=== PATIENT | female | born 1970 | race Caucasian/White ===

== ENCOUNTER → 2016-12-06 08:01 | Outpatient (CLI) | payer BC ==
[2015-06-16 11:16] VITALS: BMI 45.8
[~2016-12-06 08:01] MED LIST: BACTROBAN NASAL1 GM NASAL; BENICAR20 MG PO; ELIQUIS2.5 MG PO; LASIX20 MG PO; LEXAPRO20 MG PO; PERCOCET 10/3251 TA1 PO; PRAVACHOL40 MG PO; PRILOSEC20 MG PO; VOLTAREN75 MG PO
== END | disposition home or self-care (01) ==
LOC: D.NM 12-03 08:15
DX: M17.11 Unilateral primary osteoarthritis, right knee (principal)

== ENCOUNTER 2017-01-06 05:23 | Inpatient (IN) | payer BC ==
[2017-01-03 10:36] LABS: BASOPHILS 0.3 % (0-2); EOSINOPHILS 2.7 % (0-7); HEMATOCRIT 27.9 % (36.0-48.0); HEMOGLOBIN 8.2 g/dL (12-16); IMMATURE GRANULOCYTES 0.1 % (0-5); LYMPHOCYTES 30.7 % (15-50); MCH 21.4 pg (26.0-34.0); MCHC 29.4 g/dL (31.0-37.0); MCV 72.8 fL (80.0-100.0); MEAN PLATELET VOLUME 8.8 fL (7.4-10.4); MONOCYTES 9.7 % (2-11); NEUTROPHILS 56.5 % (40-80); RBC 3.83 10x6/uL (4.00-5.40); RDW 15.6 % (11.5-14.5); WBC 7.7 10x3/uL (4.8-10.8)
[2017-01-03 10:49] LABS: APTT 26.7 SECONDS (22.8-39.4); INR 0.94 (0.85-1.17); PROTIME 12.4 SECONDS (11.6-15.0)
[2017-01-03 10:50] LABS: CALC OSMOLALITY 272 mosm/kg (275-300); CALCIUM 7.5 mg/dL (8.5-10.1); CARBON DIOXIDE 25.7 mmol/L (21.0-32.0); CHLORIDE - SERUM 103 mmol/L (98-107); CREATININE - SERUM 0.8 mg/dL (0.6-1.3); GLUCOSE 90 mg/dL (74-106); SODIUM 136 mmol/L (136-145); UREA NITROGEN 15 mg/dL (7-18); eGFR NON AFRICAN AMERICAN 82 mL/min (90-120)
[2017-01-03 10:52] LABS: PLATELET COUNT 277 10x3/uL (130-400)
[2017-01-03 11:17] LABS: APPEARANCE SLT CLOUDY (CLEAR); BACTERIA MODERATE /hpf (NONE SEEN); BILIRUBIN NEGATIVE (NEGATIVE); COLOR YELLOW (YELLOW); GLUCOSE NEGATIVE (NEGATIVE); KETONE NEGATIVE (NEGATIVE); LEUKOCYTE ESTERASE 2+ (NEGATIVE); MUCUS <1+ /lpf (NONE SEEN); NITRITE NEGATIVE (NEGATIVE); PROTEIN NEGATIVE (NEGATIVE); RED CELLS - URINE 0-5 /hpf (0-5); UROBILINOGEN NORMAL (NORMAL); WHITE CELLS - URINE 0-5 /hpf (0-5)
[~2017-01-06] VITALS: Ht 162.6 cm; Wt 118.2 kg
[~2017-01-06 05:23] MED LIST changes: +NEURONTIN 300300 MG PO
[2017-01-06 07:23] VITALS: BP 149/81; BMI 44.7
[2017-01-06 11:29] VITALS: BP 140/74
[2017-01-06 13:32] VITALS: BP 133/73; Ht 162.6 cm; Wt 118.2 kg
--- NOTE | 2017-01-06 19:45 | NUR ---
PATIENT RESTING IN BED WITH FAMILY AT BEDSIDE. PATIENT REQUESTED PAIN MEDICATION WITH HER NIGHT MEDS. PATIENT DENIES OTHER NEEDS AT THIS TIME. BED IN LOWEST POSITION AND CALL LIGHT WITHIN REACH. ENCOURAGED THE PATIENT TO CALL IF SHE HAS NEEDS.
[2017-01-06 20:00] VITALS: BP 149/77
[2017-01-06 23:37] VITALS: BP 128/68
[2017-01-07 04:00] VITALS: BP 105/68
[2017-01-07 05:14] LABS: HEMATOCRIT 26.9 % (36.0-48.0); HEMOGLOBIN 8.1 g/dL (12-16); MCH 21.5 pg (26.0-34.0); MCHC 30.1 g/dL (31.0-37.0); MCV 71.5 fL (80.0-100.0); MEAN PLATELET VOLUME 8.8 fL (7.4-10.4); RBC 3.76 10x6/uL (4.00-5.40); RDW 15.5 % (11.5-14.5); WBC 10.1 10x3/uL (4.8-10.8)
--- NOTE | 2017-01-07 07:30 | NUR ---
RECIEVED PT DURING WALKING ROUNDS, PT RESTING IN BED WITH COMPLAINTS OF PAIN OF A 6 ON A SCALE OF 1-10. MEDICATION TO BE GIVEN PER ORDER. ASSESSMENT DONE PER FLOWSHEET. BED IN LOW POSITION AND CALL LIGHT WITHIN REACH. WILL CONTINUE TO MONITOR.
[2017-01-07 09:23] VITALS: BP 178/86
--- NOTE | 2017-01-07 09:25 | OP ---
PATIENT NAME: DES LIRA MEDICAL RECORD: [id number] :74 LOCATION:D.MS [facility]2208 ADMISSION DATE:01/06/17 SURGEON: MAGDALENE SIMPSON MD DATE OF OPERATION: 01/06/2017 PREOPERATIVE DIAGNOSIS: Unstable total knee arthroplasty. POSTOPERATIVE DIAGNOSIS: Unstable total knee arthroplasty. PROCEDURE: Revision total knee arthroplasty -- poly only. SURGEON: Magdalene Simpson MD ANESTHESIA: General. INTRAOPERATIVE COMPLICATIONS: None. SUMMARY OF PATHOLOGIC FINDINGS: On exam under anesthesia, she had well balanced knee; however, lax medially and laterally, as well as inflexion -- the 13 poly was taken out and the 16 poly was put in, which made a well balanced and appropriate tension in both flexion and extension. OPERATIVE SUMMARY IN DETAIL: After obtaining the appropriate preoperative orthopedic surgery consent as well as anesthetic consultation, evaluation and clearance, the patient was brought to the operating room and placed on the operating table in supine position. After adequate general laryngeal mask airway was administered, tourniquet was placed about the proximal aspect to the right lower extremity. Right lower extremity was prepped and draped in routine sterile fashion. Leg was elevated, exsanguinated and tourniquet was inflated to 350 mmHg. Midline incision was taken down. The 0 suture line was identified. Paramedian arthrotomy was performed. The knee was flexed. The patella was subluxed laterally. The polyethylene was removed. Trial was undertaken with 13, 19 did not go in, size 16 was the most appropriate. After copious irrigation, size 16 polyethylene was put into placed on the tibial baseplate. The knee was then taken through range of motion and found to be stable in all planes. Wound was again irrigated and closed. Paramedian arthrotomy was closed with #2 Ethibond followed by #1 Vicryl, 2-0 Vicryl and skin pablo. Sterile dressings were applied. The patient was awakened, taken to recovery room in stable condition. All final needle and sponge counts were correct. TRANSINT:[id number] Voice Confirmation ID: [id number] DOCUMENT ID: [id number] MAGDALENE SIMPSON MD at 0925 CC: [id number] DICTATION DATE: 01/06/17 1055 [place] SALESPERSON: 08/24/17 1833 ADM IN [facility] [address] [place] [address]
[2017-01-07 09:42] LABS: % SATURATION 4 % (15-55); IRON 15 ug/dl (35-150); TOTAL IRON BIND CAPACITY 354 ug/dl (260-445); UNSAT IRON BIND CAPACITY 339 ug/dl (150-375)
[2017-01-07 13:23] VITALS: BP 161/74
[2017-01-07 17:27] VITALS: BP 145/73
[2017-01-07 20:00] VITALS: BP 119/71
[2017-01-08] VITALS: BP 120/68
[2017-01-08 04:00] VITALS: BP 142/74
--- NOTE | 2017-01-08 05:42 | NUR ---
ASSISTS PT UP TO TOILET. ALTERNATING PERCOCET AND NORCO FOR PAIN. HINGE BRACE TO RIGHT KNEE. WILL CONTINUE TO MONITOR.
[2017-01-08 06:37] LABS: HEMATOCRIT 25.4 % (36.0-48.0); MCH 21.4 pg (26.0-34.0); MCHC 29.5 g/dL (31.0-37.0); MCV 72.4 fL (80.0-100.0); MEAN PLATELET VOLUME 8.7 fL (7.4-10.4); RBC 3.51 10x6/uL (4.00-5.40)
[2017-01-08 06:41] LABS: WBC 6.2 10x3/uL (4.8-10.8)
[2017-01-08 06:42] LABS: HEMOGLOBIN 7.5 g/dL (12-16)
[2017-01-08 07:19] VITALS: BP 121/69
[2017-01-08 07:19] LABS: FOLATE (FOLIC ACID) - SERUM 5.9 ng/mL (>3.0)
--- NOTE | 2017-01-08 07:47 | NUR ---
PATIENT IN BED WITH NO COMPLAINTS. IV INTACT. DENIES ANY NEEDS AT THIS TIME. FAMILY AT BEDSIDE. CALL LIGHT WITHIN REACH.
--- NOTE | 2017-01-08 07:56 | NUR ---
CALUDINE DISLA APN ORDERED 2 UNITS OF PRBCS. STATED TO CALL AFTER H&H DRAWN AFTER BLOOD AND IF LESS THAN 8 TO CALL HER. POSSIBLE DC AFTER BLOOD IF H&H OK.
[2017-01-08] MEDS ORDERED: ELIQUIS2.5 MG PO (08:17)
[2017-01-08] MEDS ORDERED: PERCOCET 10/3251 TA1 PO (08:17)
[2017-01-08] MEDS ORDERED: HEMOCYTE PLUS C1 CAP PO (08:17)
--- NOTE | 2017-01-08 10:16 | NUR ---
PATIENT FIRST UNIT OF BLOOD STARTED AT THIS TIME. NO COMPLAINTS OR SIGNS OF DISTRESS. VS STABLE. IV INTACT. CALL LIGHT WITHIN REACH. WILL CONTINUE TO MONITOR.
--- NOTE | 2017-01-08 10:40 | NUR ---
PATIENT VS STABLE. NO PROBLEMS WITH BLOOD INFUSING AT THIS TIME. PATIENT WITH NO COMPLAINTS. CALL LIGHT WITHIN REACH. WILL CONTINUE TO MONITOR.
[2017-01-08 11:04] VITALS: BP 123/66
--- NOTE | 2017-01-08 12:55 | NUR ---
PATIENT BLOOD FINISHED AT THIS TIME. NS INFUSING, VS STABLE. NO COMPLAINTS OR SIGNS OF DISTRESS. IV INTACT. CALL LIGHT WITHIN REACH.
--- NOTE | 2017-01-08 13:35 | NUR ---
PATIENT 2ND UNIT STARTED AT THIS TIME. VS STABLE. IV INTACT. NO COMPLAINTS AND SIGNS OF DISTRESS. CALL LIGHT WITHIN REACH.
[2017-01-08 15:07] VITALS: BP 155/88
[2017-01-08 16:57] LABS: HEMATOCRIT 32.8 % (36.0-48.0); HEMOGLOBIN 10.3 g/dL (12-16)
--- NOTE | 2017-01-08 17:00 | NUR ---
PATIENT DRESSING CHANGED AT THIS TIME. INCISION CDI. NO REDNESS DRAINAGE OR SIGNS OF INFECTION. PATIENT TOLERATED WITH NO PAIN. CALL LIGHT WITHIN REACH.
--- NOTE | 2017-01-08 17:42 | NUR ---
PATIENT RECIEVED DC INSTRUCTIONS. VERBALIZED UNDERSTANDING. NO QUESTION AT THIS TIME. PRESCRIPTIONS GIVEN TO PATIENT. IV REMOVED WITH CATH TIP INTACT. H&H WNL. IMMOBILIZER ON. CALL LIGHT WITHIN REACH. FAMILY AT BEDSIDE.
== END 2017-01-08 17:58 | disposition home or self-care (01) | DRG 489 ==
LOC: D.SDCHOLD 05:23 → D.MS 05:23 → D.SDCHOLD 08:30 → D.MS 11:13
PROVIDERS: ADMIT Orthopaedic Surgery
PROC: 0SUV09Z Supplement Right Knee Joint, Tibial Surface with Liner, Open Approach (ICD-10-PCS; 2017-01-06)
PROC: 0SPC09Z Removal of Liner from Right Knee Joint, Open Approach (ICD-10-PCS; principal; 2017-01-06 08:30)
DX: T84.032A Mechanical loosening of internal right knee prosthetic joint, initial encounter (principal); D64.9 Anemia, unspecified; I10 Essential (primary) hypertension

== ENCOUNTER 2017-05-26 05:37 | Day surgery (SDC) | payer BC ==
[2017-05-25 16:03] LABS: HEMATOCRIT 35.3 % (36.0-48.0); HEMOGLOBIN 11.4 g/dL (12-16); MCH 26.7 pg (26.0-34.0); MCHC 32.3 g/dL (31.0-37.0); MCV 82.7 fL (80.0-100.0); MEAN PLATELET VOLUME 9.1 fL (7.4-10.4); RBC 4.27 10x6/uL (4.00-5.40); RDW 13.6 % (11.5-14.5); WBC 6.5 10x3/uL (4.8-10.8)
[2017-05-25 16:08] LABS: CALC OSMOLALITY 270 mosm/kg (275-300); CALCIUM 8.6 mg/dL (8.5-10.1); CARBON DIOXIDE 27.3 mmol/L (21.0-32.0); CHLORIDE - SERUM 101 mmol/L (98-107); CREATININE - SERUM 0.8 mg/dL (0.6-1.3); GLUCOSE 97 mg/dL (74-106); POTASSIUM - SERUM 3.8 mmol/L (3.5-5.1); SODIUM 135 mmol/L (136-145); UREA NITROGEN 15 mg/dL (7-18); eGFR NON AFRICAN AMERICAN 82 mL/min (90-120)
[~2017-05-26] VITALS: Ht 160 cm; Wt 120.7 kg
--- NOTE | ~2017-05-26 | OP ---
PATIENT NAME: DES LIRA MEDICAL RECORD: [id number] :74 LOCATION:D.OPS ADMISSION DATE: SURGEON: MAGDALENE SIMPSON MD DATE OF OPERATION: 05/26/2017 PREOPERATIVE DIAGNOSIS: Painful osteophyte, distal aspect of the patella of the right knee status post total knee arthroplasty. POSTOPERATIVE DIAGNOSIS: Painful osteophyte, distal aspect of the patella of the right knee status post total knee arthroplasty. PROCEDURE: Arthroscopic excision of the large bone spur distal to the right patella. SURGEON: Magdalene Simpson MD ANESTHESIA: General. INTRAOPERATIVE COMPLICATIONS: None. SUMMARY OF PATHOLOGIC FINDINGS: The patient did have a very low hanging articulating osteophyte. It had articulated with the femoral implant enough to see some small abrasions on the distal aspect of it, likely causing a lot of this patient's kneecap pain. OPERATIVE SUMMARY IN DETAIL: After obtaining the appropriate preoperative orthopedic surgery consent as well as anesthetic consultation, evaluation and clearance, the patient was brought to the operating room and placed on the operating table in supine position. After general laryngeal mask airway was administered, tourniquet was placed about the proximal aspect of the right lower extremity. Right lower extremity was then prepped and draped in routine sterile fashion. Leg was elevated, exsanguinated and tourniquet was inflated to 350 mmHg. Routine inferolateral portal was established followed by superomedial portal and inferomedial portal. Diagnostic arthroscopy did reveal the patient to have this actually bone spur that was actually at the same level of the patellar component. All components did appear to be in good shape. A bur was used to grind down the articular aspect of it; however, I felt like there was still residual. Small incision was made anteriorly and the rest of the bone spur was taken out through the patellar tendon. This was removed in its entirety. The wound was copiously irrigated as was the knee using arthroscopic irrigation. The patellar tendon was reapproximated with #1 Vicryl followed by 2-0 Vicryl and skin pablo. Sterile dressings were applied. The patient was awakened and taken to the recovery room in stable condition. All final needle and sponge counts were correct. TRANSINT:[id number] Voice Confirmation ID: [id number] DOCUMENT ID: [id number] OPERATIVE REPORT [id number] PANKAJDES MD, JAMES KEVIN at 1346 CC: [id number] DICTATION DATE: 05/26/17 1135 DYE AUTOMATION OPERATOR: 05/26/17 1331 [facility] [place] [id number] [place] [id number]
[~2017-05-26 05:37] MED LIST changes: +FENOFIBRATE160 MG PO; +FUROSEMIDE20 MG PO; +HEMOCYTE PLUS C1 CAP PO; +HYDROCODONE-APA1 TAB PO; -LASIX20 MG PO; +XANAX1 MG PO
[2017-05-26 08:31] VITALS: BP 139/64; Ht 160 cm; Wt 120.7 kg
[2017-05-26] MEDS ORDERED: HYDROCODONE-APA1 TAB PO (11:32)
== END 2017-05-26 13:20 | disposition home or self-care (01) ==
LOC: D.OPS 05:37
PROVIDERS: Anesthesiology
DX: M25.671 Stiffness of right ankle, not elsewhere classified (principal); M25.561 Pain in right knee; I10 Essential (primary) hypertension; K21.9 Gastro-esophageal reflux disease without esophagitis; Z01.812 Encounter for preprocedural laboratory examination

== ENCOUNTER 2017-06-07 23:10 | Inpatient (IN) | payer BC, MEDICAID ==
[~2017-06-07] VITALS: Ht 157.5 cm; Wt 125.7 kg
--- NOTE | ~2017-06-07 | OP ---
PATIENT NAME: DES BULLOCK MEDICAL RECORD: [id number] :74 LOCATION:D.MS [facility]2205 ADMISSION DATE:06/08/17 SURGEON: MAGDALENE SIMPSON MD DATE OF OPERATION: 06/13/2017 PREOPERATIVE DIAGNOSIS: Acutely infected right total knee arthroplasty. POSTOPERATIVE DIAGNOSIS: Acutely infected right total knee arthroplasty. PROCEDURE: 1. Revision total knee arthroplasty with extensive I&D. 2. Synovectomy of the right knee. SURGEON: Magdalene Simpson MD ANESTHESIA: General. INTRAOPERATIVE COMPLICATIONS: None. SUMMARY OF PATHOLOGIC FINDINGS: The patient had very turbid synovial fluid consistent with diagnosis of infection. INDICATIONS: Ms. Bullock is a 47-year-old female who ultimately had to have a total knee arthroplasty because all other conservative options had failed. Recently she was treated with an arthroscopic inferior patellar pole osteophyte resection. One week later, she presented with temperature and a warm, painful knee. Aspirate did show Staphylococcus epidermidis. Given the fact that she is only a week out, we decided to treat her with a salvage debridement including poly exchange. OPERATIVE SUMMARY IN DETAIL: After obtaining the appropriate preoperative orthopedic surgery consent as well as anesthetic consultation, evaluation, and clearance, the patient was brought to the operating room and placed on the operating table in supine position. After general laryngeal mask airway was administered, tourniquet was placed about the proximal aspect of the right lower extremity. The right lower extremity was then prepped and draped in routine sterile fashion. The leg was elevated and exsanguinated, tourniquet inflated to 350 mmHg. Midline incision was reutilized, taken down to the level of the paramedian arthrotomy, which too was reutilized. The patella was displaced laterally. The knee was flexed. Please note that the patient had severe synovitis as well as substantial amounts of synovial fluid. Polyethylene was removed. The knee was then placed back in extension. Copious pulsatile lavage was utilized. Following this, a synovectomy was performed down into the medial and lateral gutter. Curettage was then utilized to debride the skin, subcutaneous tissue, portions of fat and fascia. The knee was then irrigated again. The knee was then placed in the flexion mode and both the femoral component and the tibial component were scrubbed with a polyethylene brush. Further irrigation was then followed by replacement of the 16 x 4 polyethylene spacer. Further irrigation was then followed by closure of the paramedian arthrotomy with #2 Ethibond followed by #1 Vicryl, 2-0 Vicryl, and skin pablo. Sterile dressings were applied. Tourniquet was deflated. The patient was awakened, taken to recovery room in stable condition. All final needle and sponge counts were correct. TRANSINT:[id number] Voice Confirmation ID: [id number] DOCUMENT ID: [id number] OPERATIVE REPORT [id number] DES BULLOCK MD, MAGDALENE QUINTANILLA at 1518 CC: [id number] DICTATION DATE: 06/13/17 1108 PRESS WRITER: 06/13/17 1344 ADM IN [place] [facility] [id number] [place] [address]
[2017-06-08 06:39] VITALS: BP 101/49; BMI 50.7
[2017-06-08 12:26] VITALS: BP 130/77
[2017-06-08 13:23] VITALS: Ht 157.5 cm; Wt 125.7 kg
[2017-06-08 14:32] LABS: BASOPHILS 0.1 % (0-2); EOSINOPHILS 0.5 % (0-7); HEMATOCRIT 33.2 % (36.0-48.0); HEMOGLOBIN 10.7 g/dL (12-16); IMMATURE GRANULOCYTES 0.2 % (0-5); LYMPHOCYTES 17.7 % (15-50); MCH 26.6 pg (26.0-34.0); MCHC 32.2 g/dL (31.0-37.0); MCV 82.6 fL (80.0-100.0); MEAN PLATELET VOLUME 9.2 fL (7.4-10.4); MONOCYTES 11.8 % (2-11); NEUTROPHILS 69.7 % (40-80); PLATELET COUNT 214 10x3/uL (130-400); RBC 4.02 10x6/uL (4.00-5.40); WBC 9.3 10x3/uL (4.8-10.8)
[2017-06-08 15:01] LABS: ANION GAP 14.9 mmol/L (8-16); C-REACTIVE PROTEIN 15.1 mg/dL (0.0-0.9); CALCIUM 8.5 mg/dL (8.5-10.1); CARBON DIOXIDE 25.9 mmol/L (21.0-32.0); POTASSIUM - SERUM 3.8 mmol/L (3.5-5.1)
[2017-06-08 15:43] LABS: ERYTHROCYTE SEDIMENTATION RATE 46 mm/hr (0-20)
[2017-06-08 15:56] VITALS: BP 131/69
[2017-06-09] VITALS (7 sets, daily range): BP systolic 101–149; BP diastolic 53–83
[2017-06-09 08:13] LABS: HEMATOCRIT 33.2 % (36.0-48.0); HEMOGLOBIN 10.6 g/dL (12-16); MCH 26.4 pg (26.0-34.0); MCHC 31.9 g/dL (31.0-37.0); MCV 82.8 fL (80.0-100.0); MEAN PLATELET VOLUME 8.8 fL (7.4-10.4); RBC 4.01 10x6/uL (4.00-5.40); RDW 13.8 % (11.5-14.5); WBC 8.3 10x3/uL (4.8-10.8)
[2017-06-09 20:37] LABS: PROTEIN - BODY FLUID 4.3 G/DL
[2017-06-09 23:06] LABS: NEUT - BF 92 %
[2017-06-10 01:30] VITALS: BP 108/67
[2017-06-10 05:21] VITALS: BP 133/66
[2017-06-10 08:07] VITALS: BP 106/63
[2017-06-10 12:17] VITALS: BP 128/79
[2017-06-10 15:46] VITALS: BP 112/60
[2017-06-10 21:41] VITALS: BP 128/74
[2017-06-11 00:40] VITALS: BP 155/84
[2017-06-11 08:29] LABS: BASOPHILS 0.2 % (0-2); EOSINOPHILS 1.7 % (0-7); HEMATOCRIT 30.7 % (36.0-48.0); HEMOGLOBIN 9.7 g/dL (12-16); IMMATURE GRANULOCYTES 0.2 % (0-5); LYMPHOCYTES 19.1 % (15-50); MCH 25.8 pg (26.0-34.0); MCHC 31.6 g/dL (31.0-37.0); MCV 81.6 fL (80.0-100.0); MEAN PLATELET VOLUME 8.8 fL (7.4-10.4); NEUTROPHILS 71.8 % (40-80); PLATELET COUNT 229 10x3/uL (130-400); RBC 3.76 10x6/uL (4.00-5.40); RDW 13.3 % (11.5-14.5); WBC 5.4 10x3/uL (4.8-10.8)
[2017-06-11 08:46] LABS: ALBUMIN 2.5 g/dL (3.4-5.0); ALKALINE PHOSPHATASE 59 U/L (46-116); ALT (SGPT) 24 U/L (10-68); BILIRUBIN - TOTAL 0.31 mg/dL (0.2-1.3); CALC OSMOLALITY 282 mosm/kg (275-300); CALCIUM 8.3 mg/dL (8.5-10.1); CARBON DIOXIDE 25.2 mmol/L (21.0-32.0); CHLORIDE - SERUM 105 mmol/L (98-107); CREATININE - SERUM 0.7 mg/dL (0.6-1.3); GLUCOSE 145 mg/dL (74-106); MAGNESIUM - SERUM 1.9 mg/dL (1.8-2.4); PHOSPHOROUS 3.3 mg/dL (2.5-4.9); POTASSIUM - SERUM 3.9 mmol/L (3.5-5.1); PROTEIN - SERUM 6.7 g/dL (6.4-8.2); SODIUM 141 mmol/L (136-145); UREA NITROGEN 11 mg/dL (7-18); eGFR NON AFRICAN AMERICAN > 90 mL/min (90-120)
[2017-06-11 09:46] VITALS: BP 136/64
[2017-06-11 12:34] VITALS: BP 147/80
[2017-06-11 17:05] VITALS: BP 115/70
[2017-06-11 22:02] VITALS: BP 146/80
[2017-06-12 06:34] LABS: HEMATOCRIT 29.4 % (36.0-48.0); HEMOGLOBIN 9.2 g/dL (12-16); MCHC 31.3 g/dL (31.0-37.0); MCV 83.1 fL (80.0-100.0); RBC 3.54 10x6/uL (4.00-5.40); RDW 13.3 % (11.5-14.5); WBC 6.1 10x3/uL (4.8-10.8)
[2017-06-12 06:50] LABS: CALC OSMOLALITY 282 mosm/kg (275-300); CALCIUM 7.9 mg/dL (8.5-10.1); CARBON DIOXIDE 26.2 mmol/L (21.0-32.0); CHLORIDE - SERUM 108 mmol/L (98-107); CREATININE - SERUM 0.7 mg/dL (0.6-1.3); GLUCOSE 100 mg/dL (74-106); SODIUM 142 mmol/L (136-145); UREA NITROGEN 12 mg/dL (7-18); eGFR NON AFRICAN AMERICAN > 90 mL/min (90-120)
[2017-06-12 09:07] VITALS: BP 141/83
[2017-06-12 12:40] VITALS: BP 140/85
[2017-06-12 17:09] VITALS: BP 163/91
[2017-06-12 21:40] VITALS: BP 151/85
[2017-06-13] VITALS (12 sets, daily range): BP systolic 129–163; BP diastolic 67–96
[2017-06-13 05:36] LABS: HEMATOCRIT 29.3 % (36.0-48.0); HEMOGLOBIN 9.3 g/dL (12-16); MCH 25.8 pg (26.0-34.0); MCHC 31.7 g/dL (31.0-37.0); MCV 81.4 fL (80.0-100.0); MEAN PLATELET VOLUME 8.8 fL (7.4-10.4); RBC 3.6 10x6/uL (4.00-5.40); RDW 13.1 % (11.5-14.5); WBC 5.7 10x3/uL (4.8-10.8)
[2017-06-13 06:16] LABS: CALC OSMOLALITY 277 mosm/kg (275-300); CALCIUM 8.2 mg/dL (8.5-10.1); CARBON DIOXIDE 28.4 mmol/L (21.0-32.0); CHLORIDE - SERUM 104 mmol/L (98-107); CREATININE - SERUM 0.7 mg/dL (0.6-1.3); GLUCOSE 105 mg/dL (74-106); SODIUM 140 mmol/L (136-145); UREA NITROGEN 10 mg/dL (7-18); eGFR NON AFRICAN AMERICAN > 90 mL/min (90-120)
[2017-06-14 04:00] VITALS: BP 169/88
[2017-06-14 04:52] LABS: HEMATOCRIT 31.1 % (36.0-48.0); MCH 26.2 pg (26.0-34.0); MCHC 32.2 g/dL (31.0-37.0); MCV 81.4 fL (80.0-100.0); MEAN PLATELET VOLUME 8.9 fL (7.4-10.4); RBC 3.82 10x6/uL (4.00-5.40); RDW 12.9 % (11.5-14.5)
[2017-06-14 05:03] LABS: WBC 10.6 10x3/uL (4.8-10.8)
[2017-06-14 05:04] LABS: ANION GAP 16.3 mmol/L (8-16); CALCIUM 8.2 mg/dL (8.5-10.1); CARBON DIOXIDE 24.5 mmol/L (21.0-32.0); POTASSIUM - SERUM 3.8 mmol/L (3.5-5.1)
[2017-06-14 05:07] LABS: CREATININE - SERUM 0.9 mg/dL (0.6-1.3)
[2017-06-14 07:55] VITALS: BP 167/80
[2017-06-14 11:52] VITALS: BP 159/78
[2017-06-14 16:11] VITALS: BP 146/80
[2017-06-14 20:00] VITALS: BP 154/81
[2017-06-15 04:00] VITALS: BP 148/87
[2017-06-15 05:03] LABS: C-REACTIVE PROTEIN 3.7 mg/dL (0.0-0.9); CALC OSMOLALITY 277 mosm/kg (275-300); CALCIUM 8.1 mg/dL (8.5-10.1); CARBON DIOXIDE 26.6 mmol/L (21.0-32.0); CHLORIDE - SERUM 103 mmol/L (98-107); CREATININE - SERUM 0.8 mg/dL (0.6-1.3); GLUCOSE 98 mg/dL (74-106); POTASSIUM - SERUM 3.5 mmol/L (3.5-5.1); SODIUM 140 mmol/L (136-145); UREA NITROGEN 10 mg/dL (7-18); eGFR NON AFRICAN AMERICAN 82 mL/min (90-120)
[2017-06-15 05:38] LABS: ERYTHROCYTE SEDIMENTATION RATE 67 mm/hr (0-20)
[2017-06-15 08:17] VITALS: BP 179/85
[2017-06-15 11:55] VITALS: BP 133/82
[2017-06-15 16:33] VITALS: BP 123/64
[2017-06-15 20:00] VITALS: BP 126/76
[2017-06-16 04:00] VITALS: BP 138/79
[2017-06-16] MEDS ORDERED: ELIQUIS2.5 MG PO (08:31)
[2017-06-16] MEDS ORDERED: PERCOCET 10/3251 TA1 PO (08:32)
[2017-06-16] MEDS ORDERED: VANCOMYCIN 1 GM/1 G1 IV (08:32)
[2017-06-16 08:38] VITALS: BP 137/80
[2017-06-16 11:46] VITALS: BP 119/72
[2017-06-16 16:25] VITALS: BP 131/78
== END 2017-06-16 19:20 | disposition home health service (06) | DRG 464 ==
LOC: D.ER 23:10 → D.MS 06-08 04:32
PROVIDERS: Orthopaedic Surgery; Student in an Organized Health Care Education/Training Program
PROC: 0SBC0ZZ Excision of Right Knee Joint, Open Approach (ICD-10-PCS; 2017-06-13)
PROC: 0SPV0JZ Removal of Synthetic Substitute from Right Knee Joint, Tibial Surface, Open Approach (ICD-10-PCS; principal; 2017-06-13 17:15)
PROC: 02H633Z Insertion of Infusion Device into Right Atrium, Percutaneous Approach (ICD-10-PCS; 2017-06-16)
PROC: B244ZZZ Ultrasonography of Right Heart (ICD-10-PCS; 2017-06-16)
DX: T84.53XA Infection and inflammatory reaction due to internal right knee prosthesis, initial encounter (principal); Z68.43 Body mass index [BMI] 50.0-59.9, adult; I10 Essential (primary) hypertension; F41.8 Other specified anxiety disorders; D64.9 Anemia, unspecified; E78.5 Hyperlipidemia, unspecified; M19.90 Unspecified osteoarthritis, unspecified site; M65.9 Synovitis and tenosynovitis, unspecified; E66.01 Morbid (severe) obesity due to excess calories

== ENCOUNTER → 2017-06-20 12:59 | Outpatient (CLI) | payer BC, MEDICAID ==
[2017-06-08 13:23] VITALS: BMI 50.7
[~2017-06-20 12:59] MED LIST changes: +VANCOMYCIN 1 GM/1 G1 IV
[2017-06-20 14:45] LABS: C-REACTIVE PROTEIN 3.1 mg/dL (0.0-0.9); CREATININE - SERUM 0.8 mg/dL (0.6-1.3); VANCOMYCIN - TROUGH 38.4 ug/mL (10.0-20.0)
[2017-06-20 15:39] LABS: ERYTHROCYTE SEDIMENTATION RATE 51 mm/hr (0-20)
[2017-06-20 15:42] LABS: BASOPHILS 0.5 % (0-2); EOSINOPHILS 3.6 % (0-7); HEMATOCRIT 29.1 % (36.0-48.0); HEMOGLOBIN 9.1 g/dL (12-16); IMMATURE GRANULOCYTES 0.5 % (0-5); LYMPHOCYTES 33.3 % (15-50); MCH 25.7 pg (26.0-34.0); MCHC 31.3 g/dL (31.0-37.0); MCV 82.2 fL (80.0-100.0); MEAN PLATELET VOLUME 9.1 fL (7.4-10.4); NEUTROPHILS 51.1 % (40-80); PLATELET COUNT 312 10x3/uL (130-400); RBC 3.54 10x6/uL (4.00-5.40); WBC 6.2 10x3/uL (4.8-10.8)
== END | disposition home or self-care (01) ==
LOC: D.LABREF 12:59
PROVIDERS: Student in an Organized Health Care Education/Training Program
DX: B95.7 Other staphylococcus as the cause of diseases classified elsewhere (principal)

== ENCOUNTER → 2017-06-22 11:56 | Outpatient (CLI) | payer MEDICAID ==
[2017-06-08 13:23] VITALS: BMI 50.7
== END | disposition home or self-care (01) ==
LOC: D.LABREF 11:56
DX: T84.53XA Infection and inflammatory reaction due to internal right knee prosthesis, initial encounter (principal); Z51.81 Encounter for therapeutic drug level monitoring; Z79.2 Long term (current) use of antibiotics; B95.8 Unspecified staphylococcus as the cause of diseases classified elsewhere

== ENCOUNTER → 2017-06-24 13:59 | Outpatient (CLI) | payer MEDICAID ==
[2017-06-08 13:23] VITALS: BMI 50.7
[2017-06-24 15:18] LABS: BASOPHILS 0.5 % (0-2); EOSINOPHILS 4.7 % (0-7); HEMATOCRIT 28.4 % (36.0-48.0); HEMOGLOBIN 8.8 g/dL (12-16); IMMATURE GRANULOCYTES 0.3 % (0-5); LYMPHOCYTES 23.2 % (15-50); MCH 25.7 pg (26.0-34.0); MCV 82.8 fL (80.0-100.0); MEAN PLATELET VOLUME 9.4 fL (7.4-10.4); MONOCYTES 7.3 % (2-11); PLATELET COUNT 309 10x3/uL (130-400); RBC 3.43 10x6/uL (4.00-5.40); RDW 13.3 % (11.5-14.5); WBC 6.4 10x3/uL (4.8-10.8)
[2017-06-24 15:33] LABS: CREATININE - SERUM 0.9 mg/dL (0.6-1.3); VANCOMYCIN - TROUGH 12.3 ug/mL (10.0-20.0)
[2017-06-24 17:20] LABS: ERYTHROCYTE SEDIMENTATION RATE 40 mm/hr (0-20)
== END | disposition home or self-care (01) ==
LOC: D.LABREF 13:59
PROVIDERS: Student in an Organized Health Care Education/Training Program
DX: T84.53XA Infection and inflammatory reaction due to internal right knee prosthesis, initial encounter (principal)

== ENCOUNTER → 2017-06-27 13:18 | Outpatient (CLI) | payer MEDICAID ==
[2017-06-08 13:23] VITALS: BMI 50.7
[2017-06-27 14:21] LABS: BASOPHILS 0.5 % (0-2); EOSINOPHILS 3.1 % (0-7); HEMATOCRIT 22.6 % (36.0-48.0); IMMATURE GRANULOCYTES 0.3 % (0-5); LYMPHOCYTES 26.9 % (15-50); MCH 25.2 pg (26.0-34.0); MCHC 31.4 g/dL (31.0-37.0); MCV 80.1 fL (80.0-100.0); MEAN PLATELET VOLUME 9.2 fL (7.4-10.4); MONOCYTES 6.6 % (2-11); NEUTROPHILS 62.6 % (40-80); PLATELET COUNT 315 10x3/uL (130-400); RBC 2.82 10x6/uL (4.00-5.40); RDW 13.2 % (11.5-14.5); WBC 5.9 10x3/uL (4.8-10.8)
[2017-06-27 14:28] LABS: C-REACTIVE PROTEIN 0.7 mg/dL (0.0-0.9); VANCOMYCIN - TROUGH 16.4 ug/mL (10.0-20.0)
[2017-06-27 14:50] LABS: HEMOGLOBIN 7.1 g/dL (12-16)
[2017-06-27 15:14] LABS: ERYTHROCYTE SEDIMENTATION RATE 28 mm/hr (0-20)
== END | disposition home or self-care (01) ==
LOC: D.LABREF 13:18
PROVIDERS: Student in an Organized Health Care Education/Training Program
DX: T84.53XA Infection and inflammatory reaction due to internal right knee prosthesis, initial encounter (principal); B95.7 Other staphylococcus as the cause of diseases classified elsewhere

== ENCOUNTER → 2017-06-28 14:35 | Outpatient (CLI) | payer MEDICAID ==
[2017-06-08 13:23] VITALS: BMI 50.7
[2017-06-28 14:50] LABS: HEMOGLOBIN 8.5 g/dL (12-16)
[2017-06-28 14:58] LABS: HEMATOCRIT 27.3 % (36.0-48.0)
== END | disposition home or self-care (01) ==
LOC: D.LABREF 14:35
PROVIDERS: Student in an Organized Health Care Education/Training Program
DX: D64.9 Anemia, unspecified (principal)

== ENCOUNTER → 2017-07-04 15:41 | Outpatient (CLI) | payer MEDICAID ==
[2017-06-08 13:23] VITALS: BMI 50.7
[2017-07-04 16:08] LABS: HEMATOCRIT 29.9 % (36.0-48.0); HEMOGLOBIN 9.5 g/dL (12-16); LYMPHOCYTES 27.9 % (15-50); MCH 25.1 pg (26.0-34.0); MCHC 31.8 g/dL (31.0-37.0); MCV 79.1 fL (80.0-100.0); NEUTROPHILS 63.2 % (40-80); RBC 3.78 10x6/uL (4.00-5.40); RDW 13.3 % (11.5-14.5); WBC 5.9 10x3/uL (4.8-10.8)
[2017-07-04 16:12] LABS: PLATELET COUNT 195 10x3/uL (130-400)
[2017-07-04 16:33] LABS: C-REACTIVE PROTEIN 0.7 mg/dL (0.0-0.9); CREATININE - SERUM 0.8 mg/dL (0.6-1.3); VANCOMYCIN - TROUGH 13.8 ug/mL (10.0-20.0)
[2017-07-04 17:13] LABS: ERYTHROCYTE SEDIMENTATION RATE 14 mm/hr (0-20)
== END | disposition home or self-care (01) ==
LOC: D.LABREF 15:41
PROVIDERS: Student in an Organized Health Care Education/Training Program
DX: T84.53XA Infection and inflammatory reaction due to internal right knee prosthesis, initial encounter (principal); B95.7 Other staphylococcus as the cause of diseases classified elsewhere

== ENCOUNTER → 2017-07-11 11:45 | Outpatient (CLI) | payer MEDICAID ==
[2017-06-08 13:23] VITALS: BMI 50.7
[2017-07-11 11:53] LABS: BASOPHILS 0.3 % (0-2); EOSINOPHILS 2.1 % (0-7); HEMATOCRIT 31.3 % (36.0-48.0); HEMOGLOBIN 9.9 g/dL (12-16); IMMATURE GRANULOCYTES 0.1 % (0-5); LYMPHOCYTES 16.8 % (15-50); MCH 25.1 pg (26.0-34.0); MCHC 31.6 g/dL (31.0-37.0); MCV 79.2 fL (80.0-100.0); MONOCYTES 8.6 % (2-11); NEUTROPHILS 72.1 % (40-80); RBC 3.95 10x6/uL (4.00-5.40); RDW 13.8 % (11.5-14.5); WBC 7.3 10x3/uL (4.8-10.8)
[2017-07-11 12:01] LABS: PLATELET COUNT 238 10x3/uL (130-400)
[2017-07-11 12:07] LABS: CREATININE - SERUM 0.8 mg/dL (0.6-1.3); VANCOMYCIN - TROUGH 17.1 ug/mL (10.0-20.0)
[2017-07-11 13:18] LABS: ERYTHROCYTE SEDIMENTATION RATE 24 mm/hr (0-20)
== END | disposition home or self-care (01) ==
LOC: D.LABREF 11:45
PROVIDERS: Student in an Organized Health Care Education/Training Program
DX: T84.53XA Infection and inflammatory reaction due to internal right knee prosthesis, initial encounter (principal); B95.7 Other staphylococcus as the cause of diseases classified elsewhere

== ENCOUNTER → 2017-07-18 14:07 | Outpatient (CLI) | payer MEDICAID ==
[2017-06-08 13:23] VITALS: BMI 50.7
[~2017-07-18 14:07] MED LIST changes: +CUBICIN500 MG IV; +CYCLOBENZAPRINE10 MG PO; +MS CONTIN15 MG PO
[2017-07-18 14:55] LABS: BASOPHILS 0.4 % (0-2); EOSINOPHILS 3.4 % (0-7); HEMATOCRIT 28.6 % (36.0-48.0); HEMOGLOBIN 8.9 g/dL (12-16); IMMATURE GRANULOCYTES 0.2 % (0-5); MCH 24.8 pg (26.0-34.0); MCHC 31.1 g/dL (31.0-37.0); MCV 79.7 fL (80.0-100.0); MEAN PLATELET VOLUME 9.3 fL (7.4-10.4); MONOCYTES 8.4 % (2-11); NEUTROPHILS 56.6 % (40-80); PLATELET COUNT 215 10x3/uL (130-400); RBC 3.59 10x6/uL (4.00-5.40); RDW 14.2 % (11.5-14.5); WBC 5.4 10x3/uL (4.8-10.8)
[2017-07-18 15:15] LABS: C-REACTIVE PROTEIN 0.7 mg/dL (0.0-0.9); CREATININE - SERUM 0.8 mg/dL (0.6-1.3); VANCOMYCIN - TROUGH 16.2 ug/mL (10.0-20.0)
[2017-07-18 16:16] LABS: ERYTHROCYTE SEDIMENTATION RATE 13 mm/hr (0-20)
== END | disposition home or self-care (01) ==
LOC: D.LABREF 14:07
PROVIDERS: Student in an Organized Health Care Education/Training Program
DX: T84.53XA Infection and inflammatory reaction due to internal right knee prosthesis, initial encounter (principal); B95.7 Other staphylococcus as the cause of diseases classified elsewhere

== ENCOUNTER → 2017-07-20 15:49 | Outpatient (CLI) | payer MEDICAID ==
[2017-06-08 13:23] VITALS: BMI 50.7
== END | disposition home or self-care (01) ==
LOC: D.OPS 15:30
DX: T84.50XA Infection and inflammatory reaction due to unspecified internal joint prosthesis, initial encounter (principal); Z01.811 Encounter for preprocedural respiratory examination; Z01.810 Encounter for preprocedural cardiovascular examination; Z01.812 Encounter for preprocedural laboratory examination; Z53.9 Procedure and treatment not carried out, unspecified reason

== ENCOUNTER → 2017-07-25 13:40 | Outpatient (CLI) | payer MEDICAID ==
[2017-06-08 13:23] VITALS: BMI 50.7
[2017-07-25 13:51] LABS: BASOPHILS 0.4 % (0-2); EOSINOPHILS 3.6 % (0-7); HEMATOCRIT 28.2 % (36.0-48.0); HEMOGLOBIN 8.7 g/dL (12-16); IMMATURE GRANULOCYTES 0.1 % (0-5); LYMPHOCYTES 25.1 % (15-50); MCH 24.9 pg (26.0-34.0); MCHC 30.9 g/dL (31.0-37.0); MCV 80.6 fL (80.0-100.0); MEAN PLATELET VOLUME 9.2 fL (7.4-10.4); MONOCYTES 9.4 % (2-11); NEUTROPHILS 61.4 % (40-80); PLATELET COUNT 210 10x3/uL (130-400); RDW 14.3 % (11.5-14.5); WBC 6.7 10x3/uL (4.8-10.8)
[2017-07-25 13:59] LABS: C-REACTIVE PROTEIN 1.2 mg/dL (0.0-0.9); CREATININE - SERUM 0.8 mg/dL (0.6-1.3)
[2017-07-25 14:57] LABS: ERYTHROCYTE SEDIMENTATION RATE 15 mm/hr (0-20)
== END | disposition home or self-care (01) ==
LOC: D.LABREF 13:40
PROVIDERS: Student in an Organized Health Care Education/Training Program
DX: T84.53XA Infection and inflammatory reaction due to internal right knee prosthesis, initial encounter (principal); B95.7 Other staphylococcus as the cause of diseases classified elsewhere

== ENCOUNTER → 2017-08-08 14:19 | Outpatient (CLI) | payer MEDICAID ==
[2017-06-08 13:23] VITALS: BMI 50.7
[2017-08-08 15:52] LABS: BASOPHILS 0.4 % (0-2); EOSINOPHILS 2.7 % (0-7); HEMOGLOBIN 10.2 g/dL (12-16); IMMATURE GRANULOCYTES 0.1 % (0-5); MCH 24.5 pg (26.0-34.0); MCHC 30.9 g/dL (31.0-37.0); MCV 79.1 fL (80.0-100.0); MONOCYTES 8.2 % (2-11); NEUTROPHILS 53.6 % (40-80); RBC 4.17 10x6/uL (4.00-5.40); RDW 14.8 % (11.5-14.5); WBC 7.7 10x3/uL (4.8-10.8)
[2017-08-08 15:56] LABS: PLATELET COUNT 293 10x3/uL (130-400)
[2017-08-08 16:22] LABS: ALBUMIN 3.2 g/dL (3.4-5.0); ANION GAP 16.7 mmol/L (8-16); BILIRUBIN - TOTAL 0.15 mg/dL (0.2-1.3); C-REACTIVE PROTEIN 1.8 mg/dL (0.0-0.9); CALCIUM 8.1 mg/dL (8.5-10.1); CARBON DIOXIDE 21.9 mmol/L (21.0-32.0); CREATININE - SERUM 0.9 mg/dL (0.6-1.3); POTASSIUM - SERUM 4.6 mmol/L (3.5-5.1); PROTEIN - SERUM 6.8 g/dL (6.4-8.2)
[2017-08-08 18:27] LABS: ERYTHROCYTE SEDIMENTATION RATE 0 mm/hr (0-20)
== END | disposition home or self-care (01) ==
LOC: D.LABREF 14:19
PROVIDERS: Student in an Organized Health Care Education/Training Program
DX: T84.50XA Infection and inflammatory reaction due to unspecified internal joint prosthesis, initial encounter (principal)

== ENCOUNTER 2017-08-10 09:18 | Inpatient (IN) | payer MEDICAID ==
[~2017-08-10] VITALS: Ht 157.5 cm; Wt 116.4 kg
--- NOTE | ~2017-08-10 | OP ---
PATIENT NAME: DES LIRA MEDICAL RECORD: [id number] :74 LOCATION:D.MS Schneider2217 ADMISSION DATE:08/10/17 SURGEON: MAGDALENE SIMPSON MD DATE OF OPERATION: 08/15/2017 PREOPERATIVE DIAGNOSIS: Infected total knee. POSTOPERATIVE DIAGNOSIS: Infected total knee. PROCEDURE: 1. Removal of right total knee. 2. Cement spacer implanted. SURGEON: Magdalene Simpson MD ANESTHESIA: General. INTRAOPERATIVE COMPLICATIONS: None. ESTIMATED BLOOD LOSS: 200 cc. ANESTHESIOLOGIST: Osmna Bowie MD OPERATIVE SUMMARY IN DETAIL: After obtaining the appropriate preoperative orthopedic surgery consent as well as anesthetic consultation, evaluation and clearance, the patient was brought to the operating room and placed on the operating table in supine position. After adequate general anesthesia was administered, the patient's right lower extremity was prepared with a tourniquet prepped and draped in routine sterile fashion. The leg was elevated and exsanguinated, tourniquet was inflated to 350 mmHg. Midline incision was taken down to the level of the knee joint itself. Upon recreating the paramedian arthrotomy, purulent drainage was noted, cultures were taken. Patella was removed followed by very careful removal of the distal femoral component with minimal blood loss. The tibial baseplate likewise was removed after the polyethylene was removed with minimal blood loss. The entire cavity was then cleaned with curettages, rongeurs, pulsatile lavage until necrotic tissue appeared to be resected. Antibiotic laden cement was then mixed and allowed to become doughy and placed in the interspace as an antibiotic spacer. Having completed this, the paramedian arthrotomy was closed with #2 Ethibond followed by #1 Vicryl, 2-0 Vicryl for final skin closure. Sterile dressings were applied. Tourniquet was deflated. The patient was placed in a knee immobilizer, awakened, taken to recovery room in stable condition. All final needle and sponge counts were correct. TRANSINT:[id number] Voice Confirmation ID: [id number] DOCUMENT ID: [id number] MAGDALENE SIMPSON MD at 1225 CC: [id number] DICTATION DATE: 09/15/17 0944 [place] ATTENDANT: 09/15/17 1059 DIS IN 08/18/17 [facility] [address] [place] [address]
[~2017-08-10 09:18] MED LIST changes: -CUBICIN500 MG IV; -CYCLOBENZAPRINE10 MG PO; -MS CONTIN15 MG PO
[2017-08-10 12:12] LABS: ALBUMIN 3.2 g/dL (3.4-5.0); ALKALINE PHOSPHATASE 168 U/L (46-116); BILIRUBIN - TOTAL 0.38 mg/dL (0.2-1.3); C-REACTIVE PROTEIN 8.1 mg/dL (0.0-0.9); CALC OSMOLALITY 272 mosm/kg (275-300); CALCIUM 8.2 mg/dL (8.5-10.1); CARBON DIOXIDE 23.5 mmol/L (21.0-32.0); CHLORIDE - SERUM 102 mmol/L (98-107); CREATININE - SERUM 0.8 mg/dL (0.6-1.3); GLUCOSE 104 mg/dL (74-106); POTASSIUM - SERUM 4.4 mmol/L (3.5-5.1); PROTEIN - SERUM 7.1 g/dL (6.4-8.2); SODIUM 137 mmol/L (136-145); UREA NITROGEN 11 mg/dL (7-18); eGFR NON AFRICAN AMERICAN 82 mL/min (90-120)
[2017-08-10 12:16] LABS: ALT (SGPT) 136 U/L (10-68)
[2017-08-10 12:21] LABS: BASOPHILS 0.2 % (0-2); HEMATOCRIT 34.5 % (36.0-48.0); HEMOGLOBIN 10.4 g/dL (12-16); IMMATURE GRANULOCYTES 0.1 % (0-5); LYMPHOCYTES 19.8 % (15-50); MCH 24.4 pg (26.0-34.0); MCHC 30.1 g/dL (31.0-37.0); MEAN PLATELET VOLUME 9.7 fL (7.4-10.4); NEUTROPHILS 70.9 % (40-80); PLATELET COUNT 306 10x3/uL (130-400); RBC 4.26 10x6/uL (4.00-5.40); RDW 15.1 % (11.5-14.5)
[2017-08-10 12:23] LABS: WBC 10.3 10x3/uL (4.8-10.8)
[2017-08-10 12:34] LABS: NEUT - BF 93 %
[2017-08-10 13:30] LABS: ERYTHROCYTE SEDIMENTATION RATE 28 mm/hr (0-20)
[2017-08-10 16:36] VITALS: BP 131/70
[2017-08-10 18:56] VITALS: BMI 46.9
[2017-08-10 19:13] VITALS: Ht 157.5 cm; Wt 116.4 kg
[2017-08-10 20:00] VITALS: BP 155/86
[2017-08-11] VITALS: BP 130/70
[2017-08-11 04:00] VITALS: BP 154/72
[2017-08-11 08:11] VITALS: BP 126/66
[2017-08-11 12:46] VITALS: BP 110/57
[2017-08-11 15:54] VITALS: BP 124/64
[2017-08-11 19:49] VITALS: BP 117/60
[2017-08-12 04:31] VITALS: BP 138/75
[2017-08-12 08:40] VITALS: BP 138/76
[2017-08-12 10:03] LABS: HEMATOCRIT 30.3 % (36.0-48.0); HEMOGLOBIN 9.2 g/dL (12-16); MCH 24.5 pg (26.0-34.0); MCHC 30.4 g/dL (31.0-37.0); MCV 80.6 fL (80.0-100.0); MEAN PLATELET VOLUME 9.8 fL (7.4-10.4); RBC 3.76 10x6/uL (4.00-5.40); RDW 14.8 % (11.5-14.5)
[2017-08-12 10:04] LABS: PLATELET COUNT 243 10x3/uL (130-400); WBC 5.2 10x3/uL (4.8-10.8)
[2017-08-12 12:15] LABS: ERYTHROCYTE SEDIMENTATION RATE 60 mm/hr (0-20)
[2017-08-12 13:01] VITALS: BP 187/120
[2017-08-12 18:02] VITALS: BP 145/72
[2017-08-12 19:41] VITALS: BP 114/60
[2017-08-13 04:22] VITALS: BP 117/67
[2017-08-13 05:27] LABS: HEMATOCRIT 28.8 % (36.0-48.0); HEMOGLOBIN 8.7 g/dL (12-16); MCH 24.3 pg (26.0-34.0); MCHC 30.2 g/dL (31.0-37.0); MCV 80.4 fL (80.0-100.0); MEAN PLATELET VOLUME 9.4 fL (7.4-10.4); RBC 3.58 10x6/uL (4.00-5.40); RDW 14.5 % (11.5-14.5); WBC 4.1 10x3/uL (4.8-10.8)
[2017-08-13 05:43] LABS: CALC OSMOLALITY 277 mosm/kg (275-300); CALCIUM 7.9 mg/dL (8.5-10.1); CARBON DIOXIDE 28.1 mmol/L (21.0-32.0); CHLORIDE - SERUM 103 mmol/L (98-107); CREATININE - SERUM 0.7 mg/dL (0.6-1.3); GLUCOSE 99 mg/dL (74-106); POTASSIUM - SERUM 4.1 mmol/L (3.5-5.1); SODIUM 140 mmol/L (136-145); UREA NITROGEN 11 mg/dL (7-18); eGFR NON AFRICAN AMERICAN > 90 mL/min (90-120)
[2017-08-13 07:42] VITALS: BP 136/61
[2017-08-13 12:24] VITALS: BP 150/60
[2017-08-13 15:35] VITALS: BP 109/56
[2017-08-13 20:38] VITALS: BP 137/66
[2017-08-13 23:47] VITALS: BP 126/71
[2017-08-14 04:00] VITALS: BP 131/80
[2017-08-14 07:57] LABS: BASOPHILS 0.2 % (0-2); EOSINOPHILS 3.6 % (0-7); HEMATOCRIT 30.2 % (36.0-48.0); HEMOGLOBIN 9.3 g/dL (12-16); IMMATURE GRANULOCYTES 0.2 % (0-5); LYMPHOCYTES 26.6 % (15-50); MCH 24.5 pg (26.0-34.0); MCHC 30.8 g/dL (31.0-37.0); MCV 79.7 fL (80.0-100.0); MEAN PLATELET VOLUME 9.1 fL (7.4-10.4); MONOCYTES 10.3 % (2-11); NEUTROPHILS 59.1 % (40-80); PLATELET COUNT 231 10x3/uL (130-400); RBC 3.79 10x6/uL (4.00-5.40); RDW 14.1 % (11.5-14.5); WBC 4.5 10x3/uL (4.8-10.8)
[2017-08-14 08:15] LABS: ALBUMIN 2.6 g/dL (3.4-5.0); ALKALINE PHOSPHATASE 93 U/L (46-116); ALT (SGPT) 36 U/L (10-68); BILIRUBIN - TOTAL 0.27 mg/dL (0.2-1.3); CALC OSMOLALITY 278 mosm/kg (275-300); CALCIUM 8.3 mg/dL (8.5-10.1); CARBON DIOXIDE 29.2 mmol/L (21.0-32.0); CHLORIDE - SERUM 104 mmol/L (98-107); CREATININE - SERUM 0.6 mg/dL (0.6-1.3); GLUCOSE 108 mg/dL (74-106); MAGNESIUM - SERUM 1.9 mg/dL (1.8-2.4); PHOSPHOROUS 4.7 mg/dL (2.5-4.9); POTASSIUM - SERUM 4.9 mmol/L (3.5-5.1); PROTEIN - SERUM 6.5 g/dL (6.4-8.2); SODIUM 139 mmol/L (136-145); UREA NITROGEN 12 mg/dL (7-18); eGFR NON AFRICAN AMERICAN > 90 mL/min (90-120)
[2017-08-14 08:37] VITALS: BP 149/75
[2017-08-14 11:39] VITALS: BP 135/71
[2017-08-14 15:40] VITALS: BP 113/64
[2017-08-14 20:41] VITALS: BP 106/60
[2017-08-15 00:45] VITALS: BP 155/105
[2017-08-15 00:50] VITALS: BP 134/76
[2017-08-15 04:30] VITALS: BP 137/77
[2017-08-15 07:43] LABS: BASOPHILS 0.2 % (0-2); EOSINOPHILS 3.3 % (0-7); HEMATOCRIT 27.7 % (36.0-48.0); HEMOGLOBIN 8.5 g/dL (12-16); LYMPHOCYTES 21.3 % (15-50); MCH 24.4 pg (26.0-34.0); MCHC 30.7 g/dL (31.0-37.0); MCV 79.6 fL (80.0-100.0); MEAN PLATELET VOLUME 8.8 fL (7.4-10.4); MONOCYTES 8.4 % (2-11); NEUTROPHILS 66.8 % (40-80); PLATELET COUNT 247 10x3/uL (130-400); RBC 3.48 10x6/uL (4.00-5.40); RDW 14.2 % (11.5-14.5); WBC 4.9 10x3/uL (4.8-10.8)
[2017-08-15 07:57] LABS: INR 1.03 (0.85-1.17); PROTIME 13.1 SECONDS (11.6-15.0)
[2017-08-15 08:00] LABS: ALBUMIN 2.3 g/dL (3.4-5.0); ALKALINE PHOSPHATASE 77 U/L (46-116); ALT (SGPT) 27 U/L (10-68); CALC OSMOLALITY 279 mosm/kg (275-300); CALCIUM 8.3 mg/dL (8.5-10.1); CARBON DIOXIDE 27.1 mmol/L (21.0-32.0); CHLORIDE - SERUM 107 mmol/L (98-107); GLUCOSE 106 mg/dL (74-106); MAGNESIUM - SERUM 1.6 mg/dL (1.8-2.4); PHOSPHOROUS 4.7 mg/dL (2.5-4.9); POTASSIUM - SERUM 4.2 mmol/L (3.5-5.1); PROTEIN - SERUM 6.4 g/dL (6.4-8.2); SODIUM 140 mmol/L (136-145); UREA NITROGEN 14 mg/dL (7-18); eGFR NON AFRICAN AMERICAN 82 mL/min (90-120)
[2017-08-15 08:06] LABS: CREATININE - SERUM 0.8 mg/dL (0.6-1.3)
[2017-08-15 08:38] VITALS: BP 106/56; BP 151/75
[2017-08-15 12:39] VITALS: BP 130/72
[2017-08-15 19:24] VITALS: BP 142/90
[2017-08-16 04:00] VITALS: BP 116/62
[2017-08-16 08:31] LABS: HEMATOCRIT 28.1 % (36.0-48.0); HEMOGLOBIN 8.6 g/dL (12-16); MCHC 30.6 g/dL (31.0-37.0); MCV 78.5 fL (80.0-100.0); MEAN PLATELET VOLUME 8.1 fL (7.4-10.4); RBC 3.58 10x6/uL (4.00-5.40); RDW 14.1 % (11.5-14.5); WBC 4.7 10x3/uL (4.8-10.8)
[2017-08-16 08:44] LABS: ANION GAP 10.9 mmol/L (8-16); CALCIUM 7.8 mg/dL (8.5-10.1); CARBON DIOXIDE 29.1 mmol/L (21.0-32.0); CREATININE - SERUM 0.9 mg/dL (0.6-1.3)
[2017-08-16 08:46] VITALS: BP 139/73
[2017-08-16 12:05] VITALS: BP 149/64
[2017-08-16 16:52] VITALS: BP 137/68
[2017-08-16 22:21] VITALS: BP 151/66
[2017-08-17 01:10] VITALS: BP 154/64
[2017-08-17 05:03] VITALS: BP 106/56
[2017-08-17 05:30] LABS: C-REACTIVE PROTEIN 6.5 mg/dL (0.0-0.9); CALC OSMOLALITY 278 mosm/kg (275-300); CALCIUM 7.8 mg/dL (8.5-10.1); CARBON DIOXIDE 27.6 mmol/L (21.0-32.0); CHLORIDE - SERUM 104 mmol/L (98-107); CREATINE KINASE 165 UL (21-215); CREATININE - SERUM 0.8 mg/dL (0.6-1.3); GLUCOSE 115 mg/dL (74-106); POTASSIUM - SERUM 3.8 mmol/L (3.5-5.1); SODIUM 139 mmol/L (136-145); UREA NITROGEN 12 mg/dL (7-18); eGFR NON AFRICAN AMERICAN 82 mL/min (90-120)
[2017-08-17 06:07] LABS: ERYTHROCYTE SEDIMENTATION RATE 58 mm/hr (0-20)
[2017-08-17 08:09] VITALS: BP 130/64
[2017-08-17 11:48] VITALS: BP 120/70
[2017-08-17 15:56] VITALS: BP 116/65
[2017-08-18 06:20] VITALS: BP 113/63
[2017-08-18] MEDS ORDERED: PERCOCET 10/3251 TA1 PO (08:06)
[2017-08-18] MEDS ORDERED: ELIQUIS2.5 MG PO (08:06)
[2017-08-18 08:10] VITALS: BP 124/65
[2017-08-18] MEDS ORDERED: MS CONTIN15 MG PO (08:12)
[2017-08-18 12:49] VITALS: BP 156/75
[2017-08-18] MEDS ORDERED: CUBICIN500 MG IV (13:52)
[2017-10-20] MEDS ORDERED: CYCLOBENZAPRINE10 MG PO (07:56)
== END 2017-08-18 16:51 | disposition home health service (06) | DRG 464 ==
LOC: D.ER 09:18 → D.RAD 09:18 → D.US 14:00 → EDSTATUS 14:00 → D.ER 14:10 → D.MS 14:10 → D.EDHOLD 14:10 → D.MS 15:10 → D.EDHOLD 15:10 → D.MS 08-13 16:30
PROVIDERS: General Practice; Orthopaedic Surgery; Physician Assistant; Student in an Organized Health Care Education/Training Program
PROC: 0S9C3ZZ Drainage of Right Knee Joint, Percutaneous Approach (ICD-10-PCS; principal; 2017-08-10 14:00)
PROC: 0SPC0JZ Removal of Synthetic Substitute from Right Knee Joint, Open Approach (ICD-10-PCS; 2017-08-15 15:15)
PROC: 0SHC08Z Insertion of Spacer into Right Knee Joint, Open Approach (ICD-10-PCS; 2017-08-15 15:15)
DX: T84.53XA Infection and inflammatory reaction due to internal right knee prosthesis, initial encounter (principal); Z68.42 Body mass index [BMI] 45.0-49.9, adult; D64.9 Anemia, unspecified; K21.9 Gastro-esophageal reflux disease without esophagitis; I10 Essential (primary) hypertension; M17.11 Unilateral primary osteoarthritis, right knee; B95.8 Unspecified staphylococcus as the cause of diseases classified elsewhere; F32.9 Major depressive disorder, single episode, unspecified; F41.9 Anxiety disorder, unspecified; E66.9 Obesity, unspecified

== ENCOUNTER → 2017-08-22 12:50 | Outpatient (CLI) | payer MEDICAID ==
[2017-08-10 19:13] VITALS: BMI 46.9
[~2017-08-22 12:50] MED LIST changes: +CUBICIN500 MG IV; +CYCLOBENZAPRINE10 MG PO; +MS CONTIN15 MG PO
[2017-08-22 13:05] LABS: BASOPHILS 0.5 % (0-2); EOSINOPHILS 4.2 % (0-7); HEMATOCRIT 26.2 % (36.0-48.0); IMMATURE GRANULOCYTES 0.2 % (0-5); LYMPHOCYTES 28.9 % (15-50); MCHC 30.5 g/dL (31.0-37.0); MCV 78.7 fL (80.0-100.0); MEAN PLATELET VOLUME 8.8 fL (7.4-10.4); MONOCYTES 8.3 % (2-11); NEUTROPHILS 57.9 % (40-80); RBC 3.33 10x6/uL (4.00-5.40); RDW 13.9 % (11.5-14.5); WBC 5.8 10x3/uL (4.8-10.8)
[2017-08-22 13:07] LABS: PLATELET COUNT 310 10x3/uL (130-400)
[2017-08-22 13:26] LABS: C-REACTIVE PROTEIN 3.8 mg/dL (0.0-0.9); CREATININE - SERUM 0.9 mg/dL (0.6-1.3)
[2017-08-22 14:06] LABS: ERYTHROCYTE SEDIMENTATION RATE 60 mm/hr (0-20)
== END | disposition home or self-care (01) ==
LOC: D.LABREF 12:50
PROVIDERS: Student in an Organized Health Care Education/Training Program
DX: T84.53XA Infection and inflammatory reaction due to internal right knee prosthesis, initial encounter (principal); B95.7 Other staphylococcus as the cause of diseases classified elsewhere

== ENCOUNTER → 2017-08-29 15:12 | Outpatient (CLI) | payer MEDICAID ==
[2017-08-10 19:13] VITALS: BMI 46.9
[2017-08-29 15:38] LABS: BASOPHILS 0.2 % (0-2); EOSINOPHILS 0.3 % (0-7); HEMATOCRIT 29.5 % (36.0-48.0); HEMOGLOBIN 8.8 g/dL (12-16); IMMATURE GRANULOCYTES 0.2 % (0-5); LYMPHOCYTES 19.4 % (15-50); MCH 23.3 pg (26.0-34.0); MCHC 29.8 g/dL (31.0-37.0); MCV 78.2 fL (80.0-100.0); MEAN PLATELET VOLUME 9.1 fL (7.4-10.4); MONOCYTES 5.8 % (2-11); NEUTROPHILS 74.1 % (40-80); PLATELET COUNT 339 10x3/uL (130-400); RBC 3.77 10x6/uL (4.00-5.40); RDW 14.3 % (11.5-14.5); WBC 8.9 10x3/uL (4.8-10.8)
[2017-08-29 15:55] LABS: C-REACTIVE PROTEIN 3.6 mg/dL (0.0-0.9); CREATININE - SERUM 0.8 mg/dL (0.6-1.3)
[2017-08-29 17:03] LABS: ERYTHROCYTE SEDIMENTATION RATE 64 mm/hr (0-20)
== END | disposition home or self-care (01) ==
LOC: D.LABREF 15:12
PROVIDERS: Student in an Organized Health Care Education/Training Program
DX: Z45.2 Encounter for adjustment and management of vascular access device (principal); B95.61 Methicillin susceptible Staphylococcus aureus infection as the cause of diseases classified elsewhere; T84.53XA Infection and inflammatory reaction due to internal right knee prosthesis, initial encounter; B95.7 Other staphylococcus as the cause of diseases classified elsewhere

== ENCOUNTER → 2017-09-05 13:20 | Outpatient (CLI) | payer MEDICAID ==
[2017-08-10 19:13] VITALS: BMI 46.9
[2017-09-05 14:19] LABS: BASOPHILS 0.4 % (0-2); EOSINOPHILS 3.4 % (0-7); HEMATOCRIT 29.1 % (36.0-48.0); HEMOGLOBIN 8.7 g/dL (12-16); IMMATURE GRANULOCYTES 0.2 % (0-5); LYMPHOCYTES 37.1 % (15-50); MCHC 29.9 g/dL (31.0-37.0); MEAN PLATELET VOLUME 9.7 fL (7.4-10.4); MONOCYTES 10.1 % (2-11); NEUTROPHILS 48.8 % (40-80); RBC 3.78 10x6/uL (4.00-5.40); RDW 14.3 % (11.5-14.5); WBC 5.3 10x3/uL (4.8-10.8)
[2017-09-05 14:27] LABS: PLATELET COUNT 269 10x3/uL (130-400)
[2017-09-05 14:49] LABS: C-REACTIVE PROTEIN 3.3 mg/dL (0.0-0.9); CREATININE - SERUM 0.9 mg/dL (0.6-1.3)
[2017-09-05 15:48] LABS: ERYTHROCYTE SEDIMENTATION RATE 53 mm/hr (0-20)
== END | disposition home or self-care (01) ==
LOC: D.LABREF 13:20
PROVIDERS: Student in an Organized Health Care Education/Training Program
DX: T84.53XA Infection and inflammatory reaction due to internal right knee prosthesis, initial encounter (principal); B95.61 Methicillin susceptible Staphylococcus aureus infection as the cause of diseases classified elsewhere

== ENCOUNTER → 2017-09-12 13:40 | Outpatient (CLI) | payer MEDICAID ==
[2017-08-10 19:13] VITALS: BMI 46.9
[2017-09-12 14:36] LABS: BASOPHILS 0.1 % (0-2); EOSINOPHILS 2.6 % (0-7); HEMATOCRIT 27.9 % (36.0-48.0); HEMOGLOBIN 8.4 g/dL (12-16); IMMATURE GRANULOCYTES 0.1 % (0-5); LYMPHOCYTES 27.3 % (15-50); MCH 22.8 pg (26.0-34.0); MCHC 30.1 g/dL (31.0-37.0); MCV 75.8 fL (80.0-100.0); MEAN PLATELET VOLUME 9.2 fL (7.4-10.4); MONOCYTES 8.6 % (2-11); NEUTROPHILS 61.3 % (40-80); PLATELET COUNT 222 10x3/uL (130-400); RBC 3.68 10x6/uL (4.00-5.40); RDW 14.6 % (11.5-14.5); WBC 6.8 10x3/uL (4.8-10.8)
[2017-09-12 15:17] LABS: C-REACTIVE PROTEIN 3.2 mg/dL (0.0-0.9); CREATINE KINASE 233 UL (21-215); CREATININE - SERUM 0.8 mg/dL (0.6-1.3); UREA NITROGEN 12 mg/dL (7-18)
[2017-09-12 15:19] LABS: CKMB 0.9 U/L (0.0-3.6)
[2017-09-12 15:43] LABS: ERYTHROCYTE SEDIMENTATION RATE 53 mm/hr (0-20)
[2017-09-13 15:49] LABS: ANA REFLEX - DIRECT Negative (Negative)
== END | disposition home or self-care (01) ==
LOC: D.LABREF 13:40
PROVIDERS: Student in an Organized Health Care Education/Training Program
DX: T84.53XA Infection and inflammatory reaction due to internal right knee prosthesis, initial encounter (principal); B95.7 Other staphylococcus as the cause of diseases classified elsewhere; B95.61 Methicillin susceptible Staphylococcus aureus infection as the cause of diseases classified elsewhere

== ENCOUNTER → 2017-09-19 13:41 | Outpatient (CLI) | payer MEDICAID ==
[2017-08-10 19:13] VITALS: BMI 46.9
[2017-09-19 14:00] LABS: BASOPHILS 0.2 % (0-2); EOSINOPHILS 3.6 % (0-7); HEMATOCRIT 28.7 % (36.0-48.0); HEMOGLOBIN 8.6 g/dL (12-16); IMMATURE GRANULOCYTES 0.3 % (0-5); LYMPHOCYTES 36.7 % (15-50); MCH 22.7 pg (26.0-34.0); MCV 75.7 fL (80.0-100.0); MEAN PLATELET VOLUME 8.8 fL (7.4-10.4); MONOCYTES 6.1 % (2-11); NEUTROPHILS 53.1 % (40-80); RBC 3.79 10x6/uL (4.00-5.40); WBC 6.4 10x3/uL (4.8-10.8)
[2017-09-19 14:07] LABS: PLATELET COUNT 292 10x3/uL (130-400)
[2017-09-19 14:18] LABS: C-REACTIVE PROTEIN 0.8 mg/dL (0.0-0.9)
[2017-09-19 15:11] LABS: ERYTHROCYTE SEDIMENTATION RATE 38 mm/hr (0-20)
== END | disposition home or self-care (01) ==
LOC: D.LABREF 13:41
PROVIDERS: Student in an Organized Health Care Education/Training Program
DX: T84.53XA Infection and inflammatory reaction due to internal right knee prosthesis, initial encounter (principal); B95.61 Methicillin susceptible Staphylococcus aureus infection as the cause of diseases classified elsewhere

== ENCOUNTER 2017-09-26 14:50 | Inpatient (IN) | payer MEDICAID ==
[~2017-09-26] VITALS: Ht 157.5 cm; Wt 117.7 kg
[~2017-09-26 14:50] MED LIST changes: -CYCLOBENZAPRINE10 MG PO
[2017-09-26 16:07] LABS: BASOPHILS 0.3 % (0-2); EOSINOPHILS 0 % (0-7); HEMATOCRIT 32.3 % (36.0-48.0); HEMOGLOBIN 10.1 g/dL (12-16); IMMATURE GRANULOCYTES 0.3 % (0-5); LYMPHOCYTES 11.4 % (15-50); MCH 23.3 pg (26.0-34.0); MCHC 31.3 g/dL (31.0-37.0); MCV 74.6 fL (80.0-100.0); MONOCYTES 9.8 % (2-11); NEUTROPHILS 78.2 % (40-80); RBC 4.33 10x6/uL (4.00-5.40); RDW 16.4 % (11.5-14.5); WBC 7.5 10x3/uL (4.8-10.8)
[2017-09-26 16:14] LABS: ANION GAP 16.7 mmol/L (8-16); CALCIUM 8.6 mg/dL (8.5-10.1); CARBON DIOXIDE 23.2 mmol/L (21.0-32.0); CREATININE - SERUM 1.4 mg/dL (0.6-1.3); POTASSIUM - SERUM 3.9 mmol/L (3.5-5.1)
[2017-09-26 16:19] LABS: PLATELET COUNT 228 10x3/uL (130-400)
[2017-09-26 16:32] LABS: BASOPHILS 0.2 % (0-2); EOSINOPHILS 0 % (0-7); HEMATOCRIT 28.5 % (36.0-48.0); HEMOGLOBIN 8.4 g/dL (12-16); IMMATURE GRANULOCYTES 0.2 % (0-5); LYMPHOCYTES 14.4 % (15-50); MCH 22.6 pg (26.0-34.0); MCHC 29.5 g/dL (31.0-37.0); MCV 76.6 fL (80.0-100.0); MEAN PLATELET VOLUME 9.1 fL (7.4-10.4); NEUTROPHILS 78.2 % (40-80); RBC 3.72 10x6/uL (4.00-5.40); RDW 16.6 % (11.5-14.5); WBC 5.3 10x3/uL (4.8-10.8)
[2017-09-26 16:35] LABS: PLATELET COUNT 194 10x3/uL (130-400)
[2017-09-26 16:52] VITALS: BMI 47.5
[2017-09-26 17:12] LABS: C-REACTIVE PROTEIN 5.7 mg/dL (0.0-0.9); CREATININE - SERUM 0.8 mg/dL (0.6-1.3)
[2017-09-26 17:32] VITALS: BP 83/48
[2017-09-26 17:43] LABS: ERYTHROCYTE SEDIMENTATION RATE 23 mm/hr (0-20)
[2017-09-26 17:43] LABS: ERYTHROCYTE SEDIMENTATION RATE 23 mm/hr (0-20)
[2017-09-26 20:38] VITALS: BP 87/54
[2017-09-27 04:06] VITALS: BP 100/57
[2017-09-27 09:02] VITALS: BP 122/76
[2017-09-27 12:44] VITALS: Ht 157.5 cm; Wt 117.7 kg
[2017-09-27 17:08] VITALS: BP 93/55
[2017-09-27 22:24] VITALS: BP 115/65
[2017-09-28 05:47] LABS: BASOPHILS 0.3 % (0-2); EOSINOPHILS 2.5 % (0-7); HEMATOCRIT 29.7 % (36.0-48.0); HEMOGLOBIN 9.1 g/dL (12-16); IMMATURE GRANULOCYTES 0.3 % (0-5); LYMPHOCYTES 32.7 % (15-50); MCHC 30.6 g/dL (31.0-37.0); MCV 75.2 fL (80.0-100.0); MONOCYTES 12.4 % (2-11); NEUTROPHILS 51.8 % (40-80); RBC 3.95 10x6/uL (4.00-5.40); RDW 16.5 % (11.5-14.5)
[2017-09-28 05:51] LABS: PLATELET COUNT 166 10x3/uL (130-400); WBC 3.6 10x3/uL (4.8-10.8)
[2017-09-28 06:14] LABS: CALC OSMOLALITY 274 mosm/kg (275-300); CALCIUM 8.5 mg/dL (8.5-10.1); CARBON DIOXIDE 25.7 mmol/L (21.0-32.0); CHLORIDE - SERUM 103 mmol/L (98-107); GLUCOSE 108 mg/dL (74-106); POTASSIUM - SERUM 3.9 mmol/L (3.5-5.1); SODIUM 138 mmol/L (136-145); UREA NITROGEN 8 mg/dL (7-18); VANCOMYCIN - TROUGH 9.3 ug/mL (10.0-20.0); eGFR NON AFRICAN AMERICAN 82 mL/min (90-120)
[2017-09-28 06:26] LABS: CREATININE - SERUM 0.8 mg/dL (0.6-1.3)
[2017-09-28 08:24] VITALS: BP 129/72
[2017-09-28 12:02] VITALS: BP 124/71
[2017-09-28 15:56] LABS: EOS BF 5 %; MACROPHAGES BF 7 %; MESOTHELIALS BF 3 %; NEUT - BF 41 %
[2017-09-28 16:29] VITALS: BP 113/60
[2017-09-28 21:54] VITALS: BP 99/50
[2017-09-29 05:01] VITALS: BP 128/71
[2017-09-29 09:02] VITALS: BP 147/81
[2017-09-29 13:57] VITALS: BP 164/87
[2017-09-29 17:20] VITALS: BP 146/87
[2017-09-29 21:15] VITALS: BP 143/71
[2017-09-30 04:08] VITALS: BP 149/81
[2017-09-30 09:30] VITALS: BP 146/88
[2017-09-30] MEDS ORDERED: PERCOCET 10/3251 TA1 PO (12:59)
[2017-09-30 13:03] VITALS: BP 129/78
[2017-10-20] MEDS ORDERED: CYCLOBENZAPRINE10 MG PO (07:56)
== END 2017-09-30 14:57 | disposition home or self-care (01) | DRG 560 ==
LOC: D.M2 14:50 → D.MS 14:55
PROVIDERS: Orthopaedic Surgery; Radiology Vascular & Interventional Radiology; Student in an Organized Health Care Education/Training Program
PROC: 0S9C3ZZ Drainage of Right Knee Joint, Percutaneous Approach (ICD-10-PCS; principal; 2017-09-28 13:00)
DX: T84.53XA Infection and inflammatory reaction due to internal right knee prosthesis, initial encounter (principal); T80.219A Unspecified infection due to central venous catheter, initial encounter; I10 Essential (primary) hypertension; F41.9 Anxiety disorder, unspecified; F32.9 Major depressive disorder, single episode, unspecified; D64.9 Anemia, unspecified; M62.830 Muscle spasm of back

== ENCOUNTER → 2017-10-05 13:35 | Outpatient (CLI) | payer MEDICAID ==
[2017-09-27 12:44] VITALS: BMI 47.5
[~2017-10-05 13:35] MED LIST changes: +CYCLOBENZAPRINE10 MG PO
[2017-10-05 15:55] LABS: BASOPHILS 0.3 % (0-2); EOSINOPHILS 2.6 % (0-7); HEMATOCRIT 35.6 % (36.0-48.0); IMMATURE GRANULOCYTES 0.1 % (0-5); LYMPHOCYTES 33.6 % (15-50); MCH 23.3 pg (26.0-34.0); MCHC 30.9 g/dL (31.0-37.0); MCV 75.3 fL (80.0-100.0); MEAN PLATELET VOLUME 9.5 fL (7.4-10.4); MONOCYTES 8.9 % (2-11); NEUTROPHILS 54.5 % (40-80); RBC 4.73 10x6/uL (4.00-5.40); RDW 16.2 % (11.5-14.5); WBC 6.9 10x3/uL (4.8-10.8)
[2017-10-05 16:06] LABS: PLATELET COUNT 347 10x3/uL (130-400)
[2017-10-05 17:18] LABS: ERYTHROCYTE SEDIMENTATION RATE 15 mm/hr (0-20)
== END | disposition home or self-care (01) ==
LOC: D.LABREF 13:35
PROVIDERS: Orthopaedic Surgery
DX: M25.561 Pain in right knee (principal)

== ENCOUNTER 2017-10-24 12:00 | Inpatient (IN) | payer MEDICAID ==
[2017-10-20 08:44] LABS: BASOPHILS 0.3 % (0-2); EOSINOPHILS 2.8 % (0-7); HEMATOCRIT 34.8 % (36.0-48.0); HEMOGLOBIN 10.8 g/dL (12-16); IMMATURE GRANULOCYTES 0.1 % (0-5); LYMPHOCYTES 34.2 % (15-50); MCH 23.7 pg (26.0-34.0); MCV 76.5 fL (80.0-100.0); MEAN PLATELET VOLUME 8.9 fL (7.4-10.4); MONOCYTES 7.9 % (2-11); NEUTROPHILS 54.7 % (40-80); RBC 4.55 10x6/uL (4.00-5.40); RDW 16.9 % (11.5-14.5); WBC 6.8 10x3/uL (4.8-10.8)
[2017-10-20 08:52] LABS: PLATELET COUNT 252 10x3/uL (130-400)
[2017-10-20 08:57] LABS: CALC OSMOLALITY 274 mosm/kg (275-300); CALCIUM 9.1 mg/dL (8.5-10.1); CARBON DIOXIDE 26.3 mmol/L (21.0-32.0); CHLORIDE - SERUM 103 mmol/L (98-107); CREATININE - SERUM 0.8 mg/dL (0.6-1.3); GLUCOSE 109 mg/dL (74-106); POTASSIUM - SERUM 4.3 mmol/L (3.5-5.1); SODIUM 138 mmol/L (136-145); UREA NITROGEN 8 mg/dL (7-18); eGFR NON AFRICAN AMERICAN 82 mL/min (90-120)
[2017-10-20 08:58] LABS: APTT 27.5 SECONDS (22.8-39.4); INR 0.97 (0.85-1.17); PROTIME 12.5 SECONDS (11.6-15.0)
[2017-10-20 09:02] LABS: APPEARANCE HAZY (CLEAR); BACTERIA MANY /hpf (NONE SEEN); BILIRUBIN NEGATIVE (NEGATIVE); COLOR YELLOW (YELLOW); GLUCOSE NEGATIVE (NEGATIVE); KETONE NEGATIVE (NEGATIVE); NITRITE NEGATIVE (NEGATIVE); PROTEIN NEGATIVE (NEGATIVE); RED CELLS - URINE 0-5 /hpf (0-5); UROBILINOGEN NORMAL (NORMAL)
[2017-10-24] VITALS (10 sets, daily range): BP systolic 109–174; BP diastolic 60–89; BMI 45.4
[~2017-10-24] VITALS: Ht 160 cm; Wt 116.4 kg
--- NOTE | ~2017-10-24 | OP ---
PATIENT NAME: DES LIRA MEDICAL RECORD: [id number] :74 LOCATION:D.MS Schneider2213 ADMISSION DATE:10/24/17 SURGEON: MAGDALENE SIMPSON MD DATE OF OPERATION: 10/24/2017 PREOPERATIVE DIAGNOSIS: Previously placed antibiotic cement spacer for infected right total knee. POSTOPERATIVE DIAGNOSIS: Previously placed antibiotic cement spacer for infected right total knee. PROCEDURE: Revision total knee arthroplasty of the right with removal of previously placed antibiotic spacer. SURGEON: Magdalene Simpson MD ANESTHESIA: General. INTRAOPERATIVE COMPLICATIONS: None. SUMMARY OF PATHOLOGIC FINDINGS: The patient's entire cavity was clean. Inflammatory markers had normalized. IMPLANTS USED: [place] triathlon revision total stabilizing implant with a size 4 tibial baseplate, size 4 universal femur, 5-mm augments on the tibial baseplate, 10-mm augments distally on the femoral baseplate, with 5-mm posterior augments. The triathlon fluted stem for the femur was 11 x 150, the tibial stem was cemented and it was 12 x 50. OPERATIVE SUMMARY IN DETAIL: After obtaining the appropriate preoperative orthopedic surgery consent as well as anesthetic consultation, evaluation and clearance, the patient was brought to the operating room and placed on the operating table in supine position. After general laryngeal mask airway was administered, tourniquet was placed about the proximal aspect of the right lower extremity. Right lower extremity was then prepped and draped in a routine sterile fashion. The leg was elevated and exsanguinated, tourniquet was inflated to 350 mmHg. Routine midline incision was taken down for paramedian arthrotomy. Paramedian arthrotomy was performed and the patella was subluxed laterally. The knee was then fully exposed. The cement spacer was taken out with osteotomes. After the cement spacer was taken out, the entire cavity was in excellent overall condition, copious irrigation was then followed by flexing the knee. The knee was flexed. The femur was reamed to the appropriate size for the above-mentioned implant. After making all the chamfer cuts and deciding on the appropriate augmentation and offset, the distal femoral component was created and put into place with good fit, fill, and good overall position. Leaving this in place, the tibia was approached. Serial and sequential reaming were done for the tibia; however, reaming was not possible beyond approximately 100 mm. Therefore, the decision made to go with a 50-mm cemented stem off the universal baseplate. The patient did have a very tight tibial canal as seen on preoperative radiographs. The appropriate cuts were made. The trial for this was then put together after punching the proximal tibia with the 5-mm augments. Multiple polyethylene trials were utilized and it was felt that the 4 x 11 polyethylene total stabilizer insert was the most appropriate. Having completed this, trials were removed. The knee was again irrigated. Final components were created on the back field to exactly match the trial components. The femoral OPERATIVE REPORT [id number] DES LIRA component was cemented in first. All excess cement was removed. The tibial component was put into place. Again, all excess cement was removed. The polyethylene was put into place along with the stabilizing post. The knee was reduced, taken into extension. The knee was again irrigated. After the cement was allowed to harden, the knee was taken through range of motion and found to be stable in all planes. Paramedian arthrotomy was closed with #2 Ethibond. A large drain was put in the knee and attached to a Hemovac. Final closure was then completed of the paramedian arthrotomy. This was followed by #1 Vicryl, 2-0 Vicryl, and skin pablo. Sterile dressings were applied. Tourniquet was deflated. The patient was placed in the knee immobilizer and then awakened and taken to recovery room in stable condition. All final needle and sponge counts were correct. TRANSINT:[id number] Voice Confirmation ID: [id number] DOCUMENT ID: [id number] TATIANA BLACKBURN, MAGDALENE QUINTANILLA at 1331 CC: [id number] DICTATION DATE: 10/27/17 0941 FILM CUTTER: 10/27/17 1050 ADM IN [facility] [address] [place] [address]
[2017-10-24] MEDS ORDERED: CIPROFLOXACIN750 MG PO (15:03)
[2017-10-24] MEDS ORDERED: FEOSOL LIQ300 MG/5 M PO (15:06)
[2017-10-24 15:18] LABS: APPEARANCE CLEAR (CLEAR); BILIRUBIN NEGATIVE (NEGATIVE); COLOR YELLOW (YELLOW); GLUCOSE NEGATIVE (NEGATIVE); KETONE NEGATIVE (NEGATIVE); NITRITE NEGATIVE (NEGATIVE); PROTEIN NEGATIVE (NEGATIVE); SPECIFIC GRAVITY 1.015 (1.005-1.020); UROBILINOGEN NORMAL (NORMAL)
[2017-10-25 00:10] VITALS: BP 125/74; Ht 160 cm; Wt 116.4 kg
[2017-10-25 00:59] VITALS: BP 109/60
[2017-10-25 04:17] VITALS: BP 93/51
[2017-10-25 05:40] LABS: HEMATOCRIT 25.9 % (36.0-48.0); HEMOGLOBIN 7.8 g/dL (12-16); MCH 23.4 pg (26.0-34.0); MCHC 30.1 g/dL (31.0-37.0); MCV 77.8 fL (80.0-100.0); MEAN PLATELET VOLUME 8.9 fL (7.4-10.4); RBC 3.33 10x6/uL (4.00-5.40); RDW 18.3 % (11.5-14.5); WBC 6.6 10x3/uL (4.8-10.8)
[2017-10-25 08:19] VITALS: BP 111/51
[2017-10-25 17:29] VITALS: BP 141/71
[2017-10-25 21:16] VITALS: BP 146/74
[2017-10-26] VITALS (13 sets, daily range): BP systolic 150–202; BP diastolic 70–109
[2017-10-26 05:52] LABS: HEMATOCRIT 24.5 % (36.0-48.0); HEMOGLOBIN 7.6 g/dL (12-16); MCH 24.2 pg (26.0-34.0); MEAN PLATELET VOLUME 9.2 fL (7.4-10.4); RBC 3.14 10x6/uL (4.00-5.40); RDW 18.9 % (11.5-14.5)
[2017-10-27 00:41] VITALS: BP 138/84
[2017-10-27 04:38] VITALS: BP 131/80
[2017-10-27 08:41] VITALS: BP 155/87
[2017-10-27 09:26] LABS: HEMATOCRIT 31.5 % (36.0-48.0); HEMOGLOBIN 9.9 g/dL (12-16)
[2017-10-27 11:29] VITALS: BP 135/84
[2017-10-27 15:55] VITALS: BP 158/89
[2017-10-27 20:00] VITALS: BP 151/72
[2017-10-28] VITALS: BP 139/88
[2017-10-28 04:00] VITALS: BP 147/83
[2017-10-28] MEDS ORDERED: CYCLOBENZAPRINE10 MG PO (08:00)
[2017-10-28] MEDS ORDERED: ELIQUIS2.5 MG PO (08:00)
[2017-10-28] MEDS ORDERED: PERCOCET 10/3251 TA1 PO (08:01)
[2017-10-28 08:12] VITALS: BP 145/83
== END 2017-10-28 13:54 | disposition home health service (06) | DRG 467 ==
LOC: D.MS 12:00 → D.SDCHOLD 12:00 → D.MS 19:44
PROVIDERS: Orthopaedic Surgery
PROC: 0SRC0J9 Replacement of Right Knee Joint with Synthetic Substitute, Cemented, Open Approach (ICD-10-PCS; 2017-10-24)
PROC: 0SPC08Z Removal of Spacer from Right Knee Joint, Open Approach (ICD-10-PCS; 2017-10-24)
PROC: 0SPC0JZ Removal of Synthetic Substitute from Right Knee Joint, Open Approach (ICD-10-PCS; principal; 2017-10-24 14:15)
DX: Z47.33 Aftercare following explantation of knee joint prosthesis (principal); D62 Acute posthemorrhagic anemia; I10 Essential (primary) hypertension

== ENCOUNTER → 2017-11-09 16:14 | Outpatient (CLI) | payer MEDICAID ==
[2017-10-25 00:10] VITALS: BMI 45.4
[~2017-11-09 16:14] MED LIST changes: +CIPROFLOXACIN750 MG PO; +FEOSOL LIQ300 MG/5 M PO
[2017-11-09 17:06] LABS: BASOPHILS 0.2 % (0-2); EOSINOPHILS 1.6 % (0-7); HEMATOCRIT 32.9 % (36.0-48.0); HEMOGLOBIN 10.4 g/dL (12-16); IMMATURE GRANULOCYTES 0.2 % (0-5); LYMPHOCYTES 36.4 % (15-50); MCH 25.8 pg (26.0-34.0); MCHC 31.6 g/dL (31.0-37.0); MCV 81.6 fL (80.0-100.0); MEAN PLATELET VOLUME 9.2 fL (7.4-10.4); MONOCYTES 5.3 % (2-11); NEUTROPHILS 56.3 % (40-80); RBC 4.03 10x6/uL (4.00-5.40); RDW 16.7 % (11.5-14.5)
[2017-11-09 17:11] LABS: PLATELET COUNT 244 10x3/uL (130-400)
== END | disposition home or self-care (01) ==
LOC: D.LABREF 16:14
PROVIDERS: Orthopaedic Surgery
DX: D50.0 Iron deficiency anemia secondary to blood loss (chronic) (principal); D62 Acute posthemorrhagic anemia; I10 Essential (primary) hypertension

== ENCOUNTER → 2017-12-02 13:14 | Outpatient (CLI) | payer MEDICAID ==
[2017-10-25 00:10] VITALS: BMI 45.4
[2017-12-02 15:32] LABS: BASOPHILS 0.4 % (0-2); EOSINOPHILS 0.4 % (0-7); HEMATOCRIT 36.3 % (36.0-48.0); HEMOGLOBIN 11.8 g/dL (12-16); IMMATURE GRANULOCYTES 0.1 % (0-5); LYMPHOCYTES 24.8 % (15-50); MCH 26.6 pg (26.0-34.0); MCHC 32.5 g/dL (31.0-37.0); MCV 81.8 fL (80.0-100.0); MEAN PLATELET VOLUME 9.7 fL (7.4-10.4); MONOCYTES 4.5 % (2-11); NEUTROPHILS 69.8 % (40-80); RBC 4.44 10x6/uL (4.00-5.40); RDW 16.2 % (11.5-14.5); WBC 7.5 10x3/uL (4.8-10.8)
[2017-12-02 15:35] LABS: PLATELET COUNT 326 10x3/uL (130-400)
[2017-12-02 16:35] LABS: ERYTHROCYTE SEDIMENTATION RATE 30 mm/hr (0-20)
== END | disposition home or self-care (01) ==
LOC: D.LABREF 13:14
PROVIDERS: Orthopaedic Surgery
DX: M25.561 Pain in right knee (principal)

== ENCOUNTER → 2017-12-08 16:48 | Outpatient (CLI) | payer MEDICAID ==
[2017-10-25 00:10] VITALS: BMI 45.4
== END | disposition home or self-care (01) ==
LOC: D.LABREF 16:48
DX: L02.415 Cutaneous abscess of right lower limb (principal)

== ENCOUNTER → 2017-12-22 17:02 | Outpatient (CLI) | payer MEDICAID ==
[2017-10-25 00:10] VITALS: BMI 45.4
[2017-12-22 17:47] LABS: BASOPHILS 0.3 % (0-2); EOSINOPHILS 1.7 % (0-7); HEMATOCRIT 33.6 % (36.0-48.0); HEMOGLOBIN 10.5 g/dL (12-16); IMMATURE GRANULOCYTES 0.2 % (0-5); MCH 26.1 pg (26.0-34.0); MCHC 31.3 g/dL (31.0-37.0); MCV 83.6 fL (80.0-100.0); MONOCYTES 6.1 % (2-11); NEUTROPHILS 61.7 % (40-80); PLATELET COUNT 285 10x3/uL (130-400); RBC 4.02 10x6/uL (4.00-5.40); RDW 14.8 % (11.5-14.5); WBC 5.9 10x3/uL (4.8-10.8)
== END | disposition home or self-care (01) ==
LOC: D.LABREF 17:02
PROVIDERS: Orthopaedic Surgery
DX: Z96.651 Presence of right artificial knee joint (principal); B95.62 Methicillin resistant Staphylococcus aureus infection as the cause of diseases classified elsewhere

== ENCOUNTER → 2018-04-18 19:52 | Outpatient (CLI) | payer MEDICAID ==
[2017-10-25 00:10] VITALS: BMI 45.4
[2018-04-18 20:07] LABS: BASOPHILS 0.3 % (0-2); EOSINOPHILS 0.7 % (0-7); HEMATOCRIT 37.1 % (36.0-48.0); HEMOGLOBIN 11.5 g/dL (12-16); IMMATURE GRANULOCYTES 0.3 % (0-5); LYMPHOCYTES 20.6 % (15-50); MCH 24.8 pg (26.0-34.0); MCV 80.1 fL (80.0-100.0); MEAN PLATELET VOLUME 9.9 fL (7.4-10.4); MONOCYTES 5.6 % (2-11); NEUTROPHILS 72.5 % (40-80); PLATELET COUNT 329 10x3/uL (130-400); RBC 4.63 10x6/uL (4.00-5.40); WBC 7.3 10x3/uL (4.8-10.8)
[2018-04-18 21:15] LABS: ERYTHROCYTE SEDIMENTATION RATE 40 mm/hr (0-20)
== END | disposition home or self-care (01) ==
LOC: D.LABREF 19:52
PROVIDERS: Orthopaedic Surgery
DX: M25.562 Pain in left knee (principal)

== ENCOUNTER → 2018-04-25 16:56 | Outpatient (CLI) | payer MEDICAID ==
[2017-10-25 00:10] VITALS: BMI 45.4
[2018-04-27 14:23] LABS: ANA REFLEX - DIRECT Negative (Negative)
== END | disposition home or self-care (01) ==
LOC: D.LABREF 16:56
PROVIDERS: Orthopaedic Surgery
DX: M25.561 Pain in right knee (principal)

== ENCOUNTER → 2018-04-28 08:21 | Outpatient (CLI) | payer MEDICAID ==
[2017-10-25 00:10] VITALS: BMI 45.4
== END | disposition home or self-care (01) ==
LOC: D.NM 08:15
DX: Z96.651 Presence of right artificial knee joint (principal)

== ENCOUNTER → 2020-01-14 07:47 | Outpatient (CLI) | payer MEDICAID ==
[2017-10-25 00:10] VITALS: BMI 45.4
== END | disposition home or self-care (01) ==
LOC: D.NM 07:47
PROVIDERS: ATTEND Internal Medicine Gastroenterology
DX: R10.13 Epigastric pain (principal); R11.2 Nausea with vomiting, unspecified

== ENCOUNTER → 2020-01-22 08:36 | Outpatient (CLI) | payer MEDICAID ==
[2017-10-25 00:10] VITALS: BMI 45.4
== END | disposition home or self-care (01) ==
LOC: D.NM 08:36
PROVIDERS: ATTEND Internal Medicine Gastroenterology
DX: R10.13 Epigastric pain (principal); R11.2 Nausea with vomiting, unspecified